=== PATIENT | female | born 1965 | race Hispanic/Latino ===

== ENCOUNTER 2022-05-29 06:59 | Emergency (ER) | payer SELFPAY, OTHER ==
[2022-05-29] MEDS ORDERED: Ketorolac Tromethamine 30 MG/ML VIAL ONE ×2 (07:27→08:01)
[2022-05-29 07:38] LABS: #Eosinphils 0.1 thou/uL (0.0-0.7); #Lymphocytes 0.9 thou/uL (1.20-3.40); #Monocytes 0.3 thou/uL (0.11-0.59); #Neutrophils 4.4 thou/uL (1.40-6.50); %Basophils 0.8 % (0.0-1.0); %Eosinophils 1.3 % (0.0-10.0); %Lymphocytes 15.8 % (21.0-51.0); %Monocytes 5.7 % (0.0-10.0); %Neutrophils 76.4 % (42.0-75.0); Mean Corpuscular HGB CONC 32.4 g/dL (32.0-36.0); Mean Corpuscular Volume 92.5 fl (78.0-98.0); Mean Platelet Volume 7.8 fL (7.4-10.4); Platelet Count 198 10x3/uL (130-400); RBC Distribution Width 11.6 % (11.5-14.5); Red Blood Cell (RBC) Count 4.69 mill/uL (4.20-5.40); White Blood Cell (WBC) Count 5.8 10x3/uL (4.8-10.8)
[2022-05-29 08:00] LABS: ALT (SGPT) 22 U/L (8-55); AST (SGOT) 27 U/L (5-34); Albumin 4.6 g/dL (3.5-5.0); Alkaline Phosphatase 65 U/L (40-110); Anion Gap 14 mmol/L (10-20); BUN (Urea Nitrogen) 15 mg/dL (9.8-20.1); Bilirubin, Total 0.4 mg/dL (0.2-1.2); Calc. Creatinine Clearance 0 mL/min (70-130); Calcium 9.4 mg/dL (7.8-10.44); Carbon Dioxide 25 mmol/L (22-29); Chloride 106 mmol/L (98-107); Estimated GFR 101; Globulin 2.7 g/dL (2.4-3.5); Glucose 97 mg/dL (70-105); Lipase 50 U/L (8-78); Potassium 3.7 mmol/L (3.5-5.1); Protein, Total 7.3 g/dL (6.0-8.3); Sodium 141 mmol/L (136-145)
[2022-05-29] MEDS ORDERED: Acetaminophen 500 MG TAB ONE (08:01)
[2022-05-29] MEDS ORDERED: Iopamidol-370 76% 500 ML 1 ML ONE (12:47)
== END 2022-05-29 08:32 | disposition home or self-care (01) ==
LOC: ERS 06:59
DX: S16.1XXA Strain of muscle, fascia and tendon at neck level, initial encounter (principal); R10.819 Abdominal tenderness, unspecified site; V59.88XA Occupant (driver) (passenger) of pick-up truck or van injured in other specified transport accidents, initial encounter
CPT/HCPCS: 36415; 70450; 71045; 72125; 74177; 80053; 83690; 85025; 96374; 96376; J1885